=== PATIENT | male | born 1955 | race Caucasian/White ===

== ENCOUNTER → 2020-01-26 | Outpatient (CLI) | payer OTHER | LOC: SJCVCIMAG 01-19 10:44 | PROVIDERS: ATTEND Internal Medicine | DX: I44.7 Left bundle-branch block, unspecified (principal); R00.1 Bradycardia, unspecified; I10 Essential (primary) hypertension; E78.5 Hyperlipidemia, unspecified; E11.9 Type 2 diabetes mellitus without complications; Z79.899 Other long term (current) drug therapy; Z87.891 Personal history of nicotine dependence ==

== ENCOUNTER → 2020-02-22 | Outpatient (CLI) | payer OTHER ==
[~2020-02-22] VITALS: Ht 188 cm; Wt 108.9 kg
[~2020-02-22] MED LIST: CHOLECALCIFEROL1 GM PO; COENZYME Q-1030 MG; COENZYME Q-1030 MG PO; COZAAR100 MG PO; FISH OIL 1,001000 M3 PO; IMDUR 30 MG TAB30 M1 PO; JANUMET 50-1,01 EACH PO; LANTUS SUBQ; VITAMIN E1000 UNIT PO
[2020-02-22 10:11] VITALS: BP 143/79
[2020-02-22 10:15] LABS: MCH 29.5 pg (26.0-34.0); MCHC 33.4 g/dL (28.0-37.0); MCV 88.3 fL (80.0-100.0); RBC 4.75 mil/uL (4.50-6.00); RDW 14.5 % (10.5-14.5); WBC 7.4 thou/uL (4.0-11.0)
[2020-02-22 11:22] LABS: CALCIUM 9.4 mg/dL (8.5-10.1); CREATININE 1.2 mg/dL (0.7-1.3); POTASSIUM 4.3 mmol/L (3.5-5.1)
--- NOTE | 2020-02-27 14:14 | CATHLAB ---
[facility] [place] [address] INVASIVE PROCEDURE REPORT Name: JOHNATHAN DELCID JR Room #: REG SUDARSHAN Brenda#: [id number] Admission: 02/22/20 Attend Phys: Jared Walter Discharge: Date of : 57 Report #: [id number] THIS REPORT FOR: cc: Von Hurley III, MD, III, Charles R. MD Lammoglia, Francisco J. MD ~ APPROVED REPORT Study performed: 02/22/2020 10:57:27 Patient Details Patient Status: Out-Patient Room #: The patient is a 64 year-old male Event Personnel Jared Walter Lubrication Servicer, Shoshana Ahuja RN RN, Silvia Montenegro Paschal, Ja'net RTR Monitor Procedures Performed Left Heart Cath w/or w/o Coronaries [id number] [facility] Art Access - R femoral artery* 10790 Initial Mod Sed Same Phys/QHP Gr5y [id number] Hemostasis w/ Mynx, supervision of conscious sedation Indication Chest pain Procedure Narrative The patient was brought electively to the Cardiac Catheterization Laboratory and was prepped and draped in a sterile manner. The Right Groin^ was infiltrated with 1% Lidocaine subcutaneous anesthesia. A SHEATH BRITE-TIP 6F X 23CM ([id number]) sheath was inserted into the RFA^. Coronary angiography was performed using coronary diagnostic catheters. The right coronary system was accessed and visualized with a 6FR JR 4 #[id number] catheter. The left coronary system was accessed and visualized with a 4FR JL4 catheter. The left ventricle was accessed and visualized with a PIGTAIL catheter. Left ventricular/Aortic Valve gradient assessed via catheter pullback. Left ventriculogram was performed in 30 degree projection. Closure device was deployed with a Fr MYNXGRIP 6/7F #[id number]. The patient tolerated the procedure well and there were no complications associated with the procedure. There was no hematoma. Intraoperative Conscious Sedation [facility] [place] [address] INVASIVE PROCEDURE REPORT Name: JOHNATHAN DELCID Room #: REG [facility]#: [id number] Admission: 02/22/20 Attend Phys: Jared Hu Discharge: Date of : 57 Report #: [id number] Sedation start time: 13:08 Case end Time: 13:40 Versed 2 mg Fluoro Time: 6.60 minutes Dose: DAP 69277.00 cGycm2 1820 mGy Contrast Type and Amount: Omnipaque 85 ml Coronary Angiography The patient's coronary anatomy is right dominant. Diagnostic Cath Left Main Normal origin large caliber trifurcates into left anterior descending left circumflex and a small ramus intermedius and are free of high-grade disease LAD Moderate caliber type II vessel coursing the anterior interventricular sulcus giving rise to septal diagonal branches. No significant high-grade lesions are noted no flow-limiting areas are present Diagonal 1 Moderate caliber vessel coursing on the anterolateral aspect of the left ventricle free of high-grade Circumflex Large-caliber vessel which courses in the AV groove giving rise to 2 marginal branches which. The course is tortuous of these marginal spur. High-grade disease. Vessel intervention small caliber posterior wall branch OM1 Moderate to large caliber vessel coursing on the lateral aspect of the ventricle free of high-grade disease OM2 Moderate to large caliber vessel coursing on the lateral aspect of the left ventricle free of high-grade disease Ramus Small insignificant caliber vessel without high-grade lesions noted Hemodynamics The aortic pressure is 138/76 mmHg with a mean of 100 mmHg. The left ventricular pressure is 111/10 mmHg with a mean of mmHg. The left ventricular end diastolic pressure is 21 mmHg. Pullback from the left ventricle to the aorta revealed no gradient across the aortic valve. Conclusion 1. Essentially normal coronary arteries 2. Normal hemodynamics [facility] [address] [place] [address] INVASIVE PROCEDURE REPORT Name: DELCIDJOHNATHAN Room #: REG [facility]#: [id number] Admission: 02/22/20 Attend Phys: Jared Hu Discharge: Date of : 57 Report #: [id number] Recommendations Cardiac Risk Reduction Program <ELECTRONICALLY SIGNED> By: Jared Walter MD 02/27/20 1414 1414 141 Jared Walter MD /INF
--- NOTE | 2020-02-29 11:22 | EKG ---
[facility] [address] [place] [address] ELECTROCARDIOGRAM REPORT Name: JOHNATHAN DELCID Room #: REG SUDARSHAN [facility]clay.#: [id number] Admission: 02/22/20 Attend Phys: Jared Walter Discharge: Date of : 57 Report #: [id number] THIS REPORT FOR: cc: Von Hurley III, MD, III,Von Walter,Jared Marshall MD ~ <ELECTRONICALLY SIGNED> By: Jared Walter MD 02/22/20 1045 1013 1013 Jared Walter MD /EPI
== END | disposition home or self-care (01) ==
LOC: CATH 07:37
PROVIDERS: ATTEND Internal Medicine
DX: R07.9 Chest pain, unspecified (principal); I25.10 Atherosclerotic heart disease of native coronary artery without angina pectoris; I42.9 Cardiomyopathy, unspecified; I10 Essential (primary) hypertension; E11.9 Type 2 diabetes mellitus without complications; Z98.890 Other specified postprocedural states; Z79.899 Other long term (current) drug therapy; Z79.4 Long term (current) use of insulin; Z85.46 Personal history of malignant neoplasm of prostate